=== PATIENT | male | born 1960 | race Caucasian/White ===

== ENCOUNTER 2018-03-04 21:27 | Emergency (ER) | payer BC ==
--- NOTE | 2018-03-04 21:33 | EDM.PDOC ---
ED HPI GENERAL MEDICAL PROBLEM - General Stated Complaint: LT SHOULDER PAIN Time Seen by Provider: 03/04/18 21:27 Source of Information: Reports: Patient, Family History Limitations: Reports: No Limitations - History of Present Illness INITIAL COMMENTS - FREE TEXT/NARRATIVE: 57 y.o.w.m came to the ed with his SO to the ed after he was stuck in "object" and overextended his left shoulder. He noticed after the even, his left shoulder is elevated. There was no direct trauma. He thinks his left shoulder is dislocated. He limited ROM in his left shoulder No othr acute medical issues. BP 135.98 RR 16 Pulse ox 100% on RA, temp 36.8 Pulse 76 Onset: Today Onset Date: 03/04/18 Onset Time: 18:00 Duration: Hour(s):, Intermittent Location: Reports: Upper Extremity, Left (shoulder) Quality: Reports: Ache, Dull, Pressure Severity: Moderate Improves with: Reports: Cold Therapy, Rest Worsens with: Reports: Movement Context: Reports: Trauma Associated Symptoms: Reports: No Other Symptoms left shoulder Pain Score (Numeric/FACES): 3 - Related Data Allergies Allergy/AdvReac Type Severity Reaction Status Date / Time No Known Allergies Allergy Verified 03/04/18 21:52 Home Meds: Home Meds Omeprazole 40 mg PO Q48H 03/04/18 [History] atorvaSTATin Calcium [Atorvastatin Calcium] 20 mg PO DAILY 03/04/18 [History] Review of Systems - Review of Systems Review Of Systems: See Below Constitutional: Reports: No Symptoms Eyes: Reports: No Symptoms Ears: Reports: No Symptoms Nose: Reports: No Symptoms Mouth/Throat: Reports: No Symptoms Respiratory: Reports: No Symptoms Cardiovascular: Reports: No Symptoms GI/Abdominal: Reports: No Symptoms Genitourinary: Reports: No Symptoms Musculoskeletal: Reports: Shoulder Pain (left) Skin: Reports: No Symptoms Neurological: Reports: No Symptoms Psychiatric: Reports: No Symptoms ED EXAM, GENERAL - Physical Exam Exam: See Below Exam Limited By: No Limitations General Appearance: Alert, WD/WN, Mild Distress Eye Exam: Bilateral Eye: Normal Inspection Ears: Normal External Exam, Normal Canal Ear Exam: Bilateral Ear: Auricle Normal Nose: Normal Inspection, Normal Mucosa, No Blood Throat/Mouth: Normal Inspection, Normal Lips, Normal Voice, No Airway Compromise Head: Atraumatic, Normocephalic Neck: Normal Inspection, Supple, Non-Tender, Full Range of Motion Respiratory/Chest: No Respiratory Distress, Lungs Clear, Normal Breath Sounds, No Accessory Muscle Use, Chest Non-Tender Cardiovascular: Normal Peripheral Pulses, Regular Rate, Rhythm, No Edema, No Gallop, No JVD, No Murmur, No Rub Peripheral Pulses: 1+: Brachial (L) GI/Abdominal: Normal Bowel Sounds, Soft, Non-Tender, No Organomegaly, No Abnormal Bruit, No Mass (Male) Exam: Deferred Rectal (Males) Exam: Deferred Back Exam: Normal Inspection, Full Range of Motion Extremities: Normal Inspection, No Pedal Edema, Normal Capillary Refill, Limited Range of Motion (left shoulder) Neurological: Alert, Oriented Psychiatric: Normal Affect, Normal Mood Skin Exam: Warm, Dry, Intact, Normal Color, No Rash Lymphatic: No Adenopathy Course - Vital Signs Text/Narrative:: 57 y.o.w.m came to the ed with his SO to the ed after he was stuck in "object" and overextended his left shoulder. He noticed after the even, his left shoulder is elevated. There was no direct trauma. He thinks his left shoulder is dislocated. He limited ROM in his left shoulder No othr acute medical issues. BP 135.98 RR 16 Pulse ox 100% on RA, temp 36.8 Pulse 76 PE: 57 y.o.w.m with left shoulder discomfort Imaging: Left shoulder: NAD Impression: Left shoulder sprain Tx: ICE. Pt refused pain meds Reexam: Improved Plan: D/C with instructions Last Recorded V/S: Last Vital Signs Temp 36.7 C 03/04/18 22:50 Pulse 77 03/04/18 22:50 Resp 15 03/04/18 22:50 BP 124/94 H 03/04/18 22:50 Pulse Ox 98 03/04/18 22:50 - Orders/Labs/Meds Orders: Active Orders 24 hr Category Date Time Status Shoulder Comp Lt [CR] Stat Exams 03/04/18 21:32 Taken Departure - Departure Time of Disposition: 22:38 Disposition: Home, Self-Care 01 Condition: Good Clinical Impression: Sprain of shoulder, left Qualifiers: Encounter type: initial encounter Shoulder sprain type: unspecified sprain Qualified Code(s): S43.402A - Unspecified sprain of left shoulder joint, initial encounter - Discharge Information Instructions: Shoulder Sprain Referrals: Dc Tobin MD [Primary Care Provider] - Forms: ED Department Discharge Additional Instructions: Rest, Ice, elevation, Motrin for pain. Please f/u, come back if you symptoms get worse acutely. - My Orders Last 24 Hours: My Active Orders 03/04/18 21:32 Shoulder Comp Lt [CR] Stat - Assessment/Plan Last 24 Hours: My Active Orders 03/04/18 21:32 Shoulder Comp Lt [CR] Stat
== END 2018-03-04 22:52 | disposition home or self-care (01) ==
LOC: FB.ED 21:27
DX: S43.402A Unspecified sprain of left shoulder joint, initial encounter (principal); X50.9XXA Other and unspecified overexertion or strenuous movements or postures, initial encounter
CPT/HCPCS: 73030-LT; 99283